=== PATIENT | female | born 1960 | race American Indian/Alaskan Native ===

== ENCOUNTER 2018-01-15 10:03 | Emergency (ER) | payer MEDICAID ==
[2018-01-15] MEDS ORDERED: NACL 0.9% 1000 ML 1,000 ML IV ONE (10:26)
[2018-01-15 10:43] LABS: Basophils % (Auto) 0.4 % (0.0-1.8); Eosinophils # (Auto) 0.1 K/mm3 (0.0-0.4); Eosinophils % (Auto) 1.2 % (0.0-4.3); Hematocrit 39.9 % (30.3-42.9); Hemoglobin 13.5 gm/dl (10.1-14.3); Lymphocytes # (Auto) 1.5 K/mm3 (1.2-5.4); Lymphocytes % (Auto) 23.1 % (13.4-35.0); Mean Corpuscular HGB Conc 34 % (30-34); Mean Corpuscular Hemoglobin 30 pg (28-32); Mean Corpuscular Volume 88 fl (79-97); Monocytes # (Auto) 0.5 K/mm3 (0.0-0.8); Monocytes % (Auto) 8.4 % (0.0-7.3); Platelet Count 125 K/mm3 (140-440); Red Blood Count 4.54 M/mm3 (3.65-5.03); Red Cell Distribution Width 12.6 % (13.2-15.2)
--- NOTE | 2018-01-15 10:54 | Emergency Department Report ---
ED General Adult HPI - General Chief complaint: Dyspnea/Respdistress Stated complaint: SOB/CONSTIPATION Time Seen by Provider: 01/15/18 10:35 Source: patient, EMS Mode of arrival: Stretcher Limitations: No Limitations - History of Present Illness Initial comments: Patient stated that she was short of breath for a brief period of time this a.m. but not now. She is breathing normally and has no respiratory symptoms as well as a pulse oximetry of 100% and normal respiratory rate. She tells me quite systemically that since she was begun on Percocet 2 days ago she has not had a bowel movement for 2 days. She comes here today with a chief complaint of constipation. She has clear that this is the reason why she came. She has some mid abdominal discomfort but it is related to constipation. She denies previous surgery. She states that she has not had this problem prior to the prescription of oxycodone by her painting contractor. She tried a fleets enema at home without success. She is resting comfortably at the time of my encounter. -: Gradual, days(s) Location: abdomen Radiation: non-radiation Quality: other (intermittent cramping with attempted bowel movement) Improves with: none Worsens with: none, immobilization Associated Symptoms: denies: nausea/vomiting (no nausea or vomiting) Treatments Prior to Arrival: other (fleets) - Related Data Home Medications Medication Instructions Recorded Confirmed Last Taken Gabapentin [Neurontin] 300 mg PO DAILY PRN 12/13/13 01/15/18 12/12/13 1 Insulin Aspart [Novolog 100 40 unit SQ AC 12/13/13 01/15/18 12/13/13 UNITS/ML] 1 Metformin HCl [Glucophage] 1,000 mg PO BID 12/13/13 01/15/18 12/13/13 1 amLODIPine [Norvasc] 5 mg PO DAILY 12/13/13 01/15/18 12/13/13 1 Insulin Detemir [Levemir VIAL] 60 units SUB-Q QHS 01/15/18 01/15/18 Unknown Losartan/Hydrochlorothiazide 1 tab PO DAILY 01/15/18 01/15/18 Unknown [Hyzaar 100-12.5 Tablet] Previous Rx's Medication Instructions Recorded Last Taken Type Docusate Sodium [Colace] 100 mg PO BID #20 capsule 01/15/18 Unknown Rx Methylnaltrexone Rowe [Relistor] 150 mg PO DAILY #7 tablet 01/15/18 Unknown Rx Allergies Allergy/AdvReac Type Severity Reaction Status Date / Time No Known Allergies Allergy Verified 01/15/18 10:22 ED Review of Systems ROS: Stated complaint: SOB/CONSTIPATION Other details as noted in HPI Constitutional: denies: chills, fever Eyes: denies: eye pain, eye discharge, vision change ENT: denies: ear pain, throat pain Respiratory: shortness of breath (resolved). denies: cough, wheezing Cardiovascular: denies: chest pain, palpitations Endocrine: no symptoms reported Gastrointestinal: abdominal pain, constipation. denies: nausea, vomiting, diarrhea Genitourinary: denies: urgency, dysuria, discharge Musculoskeletal: denies: back pain, joint swelling, arthralgia Skin: denies: rash, lesions Neurological: denies: headache, weakness, paresthesias Psychiatric: denies: anxiety, depression Hematological/Lymphatic: denies: easy bleeding, easy bruising ED Past Medical Hx - Past Medical History Previous Medical History?: Yes Hx Hypertension: Yes Hx Diabetes: Yes Hx Arthritis: Yes - Surgical History Past Surgical History?: Yes Additional Surgical History: hysterectomy. L leg - Social History Smoking Status: Never Smoker Substance Use Type: None - Medications Home Medications: Home Medications Medication Instructions Recorded Confirmed Last Taken Type Gabapentin [Neurontin] 300 mg PO DAILY PRN 12/13/13 01/15/18 12/12/13 History 1 Insulin Aspart [Novolog 100 40 unit SQ AC 12/13/13 01/15/18 12/13/13 History UNITS/ML] 1 Metformin HCl [Glucophage] 1,000 mg PO BID 12/13/13 01/15/18 12/13/13 History 1 amLODIPine [Norvasc] 5 mg PO DAILY 12/13/13 01/15/18 12/13/13 History 1 Docusate Sodium [Colace] 100 mg PO BID #20 capsule 01/15/18 Unknown Rx Insulin Detemir [Levemir VIAL] 60 units SUB-Q QHS 01/15/18 01/15/18 Unknown History Losartan/Hydrochlorothiazide 1 tab PO DAILY 01/15/18 01/15/18 Unknown History [Hyzaar 100-12.5 Tablet] Methylnaltrexone Rowe [Relistor] 150 mg PO DAILY #7 tablet 01/15/18 Unknown Rx ED Physical Exam - General Limitations: No Limitations General appearance: alert, in no apparent distress - Head Head exam: Present: atraumatic, normocephalic - Eye Eye exam: Present: normal appearance. Absent: scleral icterus - ENT ENT exam: Present: mucous membranes moist - Neck Neck exam: Present: normal inspection - Respiratory Respiratory exam: Present: normal lung sounds bilaterally. Absent: respiratory distress - Cardiovascular Cardiovascular Exam: Present: regular rate, normal rhythm. Absent: systolic murmur, diastolic murmur, rubs, gallop - GI/Abdominal GI/Abdominal exam: Present: soft, normal bowel sounds. Absent: distended, tenderness, guarding, rebound, rigid - Extremities Exam Extremities exam: Present: normal inspection - Back Exam Back exam: Present: normal inspection - Neurological Exam Neurological exam: Present: alert, oriented X3, CN II-XII intact. Absent: motor sensory deficit - Psychiatric Psychiatric exam: Present: normal affect, normal mood - Skin Skin exam: Present: warm, dry, intact, normal color. Absent: rash ED Course Vital Signs 01/15/18 10:18 Pulse Rate 87 Respiratory 16 Rate Blood Pressure 150/73 - Reevaluation(s) Reevaluation #1: Patient resting comfortably with no complaints. Her laboratory database was unremarkable except for slightly low platelets. This can be followed as an outpatient. Her x-ray showed nothing acute and did not demonstrate an abundance of stool either. She will be given a prescription for Relistor and Colace. She is directed to discuss her pain management with her pain management clinic. She appears to have opioid associated constipation. 01/15/18 12:31 ED Medical Decision Making - Lab Data Result diagrams: 01/15/18 10:29 01/15/18 10:29 Laboratory Results - last 24 hr 01/15/18 10:29 WBC 6.5 RBC 4.54 Hgb 13.5 Hct 39.9 MCV 88 MCH 30 MCHC 34 RDW 12.6 L Plt Count 125 L Lymph % (Auto) 23.1 [place] % (Auto) 8.4 H Eos % (Auto) 1.2 Baso % (Auto) 0.4 Lymph # 1.5 [place] # 0.5 Eos # 0.1 Baso # 0.0 Seg Neutrophils % 66.9 Seg Neutrophils # 4.4 Laboratory Results - last 24 hr 01/15/18 01/15/18 01/15/18 10:29 10:29 10:40 WBC 6.5 RBC 4.54 Hgb 13.5 Hct 39.9 MCV 88 MCH 30 MCHC 34 RDW 12.6 L Plt Count 125 L Lymph % (Auto) 23.1 [place] % (Auto) 8.4 H Eos % (Auto) 1.2 Baso % (Auto) 0.4 Lymph # 1.5 [place] # 0.5 Eos # 0.1 Baso # 0.0 Seg Neutrophils % 66.9 Seg Neutrophils # 4.4 Sodium 140 Potassium 5.0 Chloride 102.8 Carbon Dioxide 26 Anion Gap 16 BUN 6 L Creatinine 0.7 Estimated GFR > 60 BUN/Creatinine Ratio 9 Glucose 247 H Calcium 9.2 Total Bilirubin 0.60 AST 13 ALT 9 Alkaline Phosphatase 92 Total Protein 7.4 Albumin 4.1 Albumin/Globulin Ratio 1.2 Urine Color Yellow Urine Turbidity Slightly-cloudy Urine pH 5.0 Ur Specific [place] 1.025 Urine Protein 30 mg/dl Urine Glucose (UA) 150 Urine Ketones Tr Urine Blood Neg Urine Nitrite Neg Urine Bilirubin Neg Urine Urobilinogen 2.0 Ur Leukocyte Esterase Tr Urine WBC (Auto) 2.0 Urine RBC (Auto) 3.0 U Epithel Cells (Auto) 1.0 Urine Mucus 2+ - EKG Data -: EKG Interpreted by Me EKG shows normal: sinus rhythm, axis, intervals, QRS complexes, ST-T waves Rate: normal - EKG Data Slight J-point elevation perhaps but motion artifact. No reciprocal changes. No evidence of acute ischemia. 01/15/18 12:01 - Radiology Data Radiology results: report reviewed Critical care attestation.: If time is entered above; I have spent that time in minutes in the direct care of this critically ill patient, excluding procedure time. ED Disposition Clinical Impression: Constipation Qualifiers: Constipation type: drug induced constipation Qualified Code(s): K59.03 - Drug induced constipation Abdominal pain Qualifiers: Abdominal location: unspecified location Qualified Code(s): R10.9 - Unspecified abdominal pain Disposition: TO HOME OR SELFCARE Is pt being admited?: No Does the pt Need Aspirin: No Condition: Stable Instructions: Constipation (ED), Abdominal Pain (ED) Additional Instructions: Follow-up with her pain management and primary care physician. Her platelet count was slightly low. That should be followed as an outpatient. I am going to give you a prescription for a stool softener and something that works for opioid related constipation. It appears that he may be correct that your symptoms are secondary to oxycodone. Return however if you have any increased abdominal pain vomiting fever or acute change. Prescriptions: Docusate Sodium [Colace] 100 mg PO BID #20 capsule Methylnaltrexone Rowe [Relistor] 150 mg PO DAILY #7 tablet Referrals: PRIMARY CARE, [Referring] - 3-5 Days Time of Disposition: 12:33
[2018-01-15 10:58] LABS: Alanine Aminotransferase 9 units/L (7-56); Albumin 4.1 g/dL (3.9-5); BUN/Creatinine Ratio 9; Blood Urea Nitrogen 6 mg/dL (7-17); Calcium 9.2 mg/dL (8.4-10.2); Hemolysis Index 6
[2018-01-15 11:13] LABS: Bilirubin,Urine NEG (Negative); Blood,Urine NEG (Negative); Color,Urine Yellow (Yellow); Mucus,Urine 2+ /HPF
--- NOTE | 2018-01-15 12:09 | XRay Report ---
FINAL REPORT PROCEDURE: XR ABD SERIES W CXR 1V TECHNIQUE: Abdominal series complete, including supine and upright AP views of the abdomen and frontal chest. HISTORY: abdominal pain constipation short of breath COMPARISON: No prior studies are available for comparison. FINDINGS: Heart: Normal. Mediastinum/Vessels: Normal. Lungs/Pleural space: Normal. Bowel gas pattern: Intestinal gas is distributed predominantly in nondistended colon. There is mild degree residual stool.. Masses or calcifications: None. Bony structures: Mild to moderate degree degenerative changes are noted involving the lumbar spine with mild degree levoscoliosis.. Other: No free intraperitoneal air. IMPRESSION: Nonspecific intestinal gas pattern with mild degree residual stool..
[2018-01-15 12:44] VITALS: BP 163/97
[2018-01-15] MEDS ORDERED: DECADRON IV ONE (13:57)
== END 2018-01-15 14:00 | disposition home or self-care (01) ==
LOC: ED 10:03
DX: K59.03 Drug induced constipation (principal); R06.02 Shortness of breath; I10 Essential (primary) hypertension; E11.9 Type 2 diabetes mellitus without complications; M19.90 Unspecified osteoarthritis, unspecified site; Z90.710 Acquired absence of both cervix and uterus; Z79.899 Other long term (current) drug therapy
CPT/HCPCS: 36415; 74022; 80053; 81001; 85025; 99284; J7030